=== PATIENT | male | born 1975 | race Caucasian/White ===

== ENCOUNTER 2016-06-11 13:05 | Emergency (ER) ==
[2016-06-11 13:14] VITALS: BP 242/160; TEMP 99.4; BMI 38.2
[2016-06-11] MEDS ORDERED: PROCARDIA XL PO STA (13:16)
[2016-06-11] MEDS ORDERED: CATAPRES PO STA (13:17)
[2016-06-11] MEDS ORDERED: ATIVAN PO STA (13:17)
[2016-06-11 13:37] LABS: BASOPHILS % (AUTO) 0.5 % (0.0-3.0); EOSINOPHILS % (AUTO) 0.6 % (0.0-7.0); HEMATOCRIT 49.3 % (42.0-52.0); HEMOGLOBIN 17.1 g/dl (14.0-18.0); IMMATURE GRANULOCYTE % (AUTO) 0.9 % (0.0-5.0); LYMPHOCYTES # (AUTO) 0.8 K/uL (0.60-3.4); LYMPHOCYTES % (AUTO) 11.8 (10.0-50.0); MEAN CORPUSCULAR HEMOGLOBIN 28.8 pg (27.0-31.0); MEAN CORPUSCULAR HGB CONC 34.7 (31.8-35.4); MEAN CORPUSCULAR VOLUME 83.1 fl (80.0-94.0); MONOCYTES # (AUTO) 0.5 K/uL (0.4-2.0); MONOCYTES % (AUTO) 7.9 (0-10); NEUTROPHILS % (AUTO) 78.3; PLATELET COUNT 255 10^3/uL (140-440); RED BLOOD COUNT 5.93 10^6/ul (4.70-6.10); WHITE BLOOD COUNT 6.34 K/ul (4.2-10.2)
[2016-06-11 14:18] LABS: ALANINE AMINOTRANSFERASE 36 U/L (12-78); ALBUMIN 3.5 g/dL (3.4-5.0); ALBUMIN/GLOBULIN RATIO 1.21; ALKALINE PHOSPHATASE 76 U/L (50-136); ANION GAP 13.4; ASPARTATE AMINO TRANSFERASE 18 U/L (15-37); BILIRUBIN,TOTAL 0.46 mg/dL (0.00-1.20); BLOOD UREA NITROGEN 11 mg/dL (7-18); BUN/CREATININE RATIO 10.37; CARBON DIOXIDE 23 mmol/L (21-32); CHLORIDE 108 mmol/L (98-107); CREATINE KINASE 146 U/L; CREATININE 1.06 mg/dL (0.60-1.10); GLUCOSE 101 mg/dL (70-100); POTASSIUM 3.4 mmol/L (3.5-5.1); SODIUM 141 mmol/L (136-145); TOTAL PROTEIN 6.4 g/dL (6.4-8.2)
[2016-06-11 14:21] LABS: CREATINE KINASE MB 0.6 ng/ml (0.0-3.6)
--- NOTE | 2016-06-11 15:52 | ED.PDOC ---
General ED Provider: Dr. CAMPBELL HOBBS-ER Chief Complaint: Behavioral Complaint Stated Complaint: my left me--concepcion been off my bp meds---i am not sleeping Time Seen by Physician: 13:10 Mode of Arrival: Walk-In Information Source: Patient Exam Limitations: No limitations Primary Care Provider: DARION BERKOWITZ Nursing and Triage Documentation Reviewed and Agree: Yes Psychological Complaint Exam - Psychiatric Complaint/Exam Patient Complains Of: Present: Other Onset/Duration: several days Symptoms Are: Still present Timing: Intermittent Episodes Lasting: Days Initial Severity: Mild Current Severity: Mild Character: Present: Depressed, Anxious Aggravating: Reports: Recent stress, Medication noncompliance (not taking bp meds) Associated Signs And Symptoms: Reports: Sleep disturbance, Appetite change. Denies: Hostile, Confused, Hallucinating, Paranoid behavior Related History: Reports: Recent stressors. Denies: Suicidal thoughts, Suicidal plan, Suicidal gestures, Homicidal thoughts, Homicidal plan, Homicidal gestures, Prior attempts, Drug ingestion Completed Suicide Risk Factors: Male, Patient In Custody Of Police: No Social Withdrawal Present: No Social Isolation Present: No Prior Suicide Attempt: No Injury From Prior Suicide Attempt: No Related Surgical History: Reports: None Patient Uncooperative For Exam: No Mood: Present: Depressed, Anxious. Absent: Angry, Guarded, Paranoid, Hallucinating, Manic, Agitated, Hearing voices Appearance: Present: Clean Thought Process: Present: Logical Insight: Present: Good Memory: Intact Judgement: Normal Danger To Others: No Patient Medically Stable For: Psych evaluation Differential Diagnoses: Anxiety, Depression Review of Systems - Review Of Systems Constitutional: Reports: No symptoms Eyes: Reports: No symptoms Ears, Nose, Mouth, Throat: Reports: No symptoms Respiratory: Reports: No symptoms Cardiac: Reports: No symptoms GI: Reports: No symptoms : Reports: No symptoms Musculoskeletal: Reports: No symptoms Skin: Reports: No symptoms Neurological: Reports: Anxiety Endocrine: Reports: No symptoms Hematologic/Lymphatic: Reports: No symptoms All Other Systems: Reviewed and Negative Past Medical History - Past Medical History Endocrine: Reports: Unknown Cardiovascular: Reports: Hypertension Respiratory: Reports: Unknown Hematological: Reports: Unknown Gastrointestinal: Reports: Unknown Genitourinary: Reports: Unknown Neuro/Psych: Reports: Unknown Musculoskeletal: Reports: Unknown Cancer: Reports: Unknown - Surgical History General Surgical History: Reports: Unknown - Family History Family History: Reports: Unknown - Social History Smoking Status: Current every day smoker, Heavy tobacco smoker Hx Substance Use: No Alcohol Screening: None Physical Exam - Physical Exam Appearance: Well-appearing, No pain distress, Well-nourished Eyes: EMETERIO, EOMI, Conjunctiva clear ENT: Ears normal, Nose normal, Oropharynx normal Neck: Supple Respiratory: Airway patent, Breath sounds clear, Breath sounds equal, Respirations nonlabored Cardiovascular: RRR, Pulses normal, No rub, No murmur GI/: Soft, Nontender, No masses, Bowel sounds normal, No Organomegaly Musculoskeletal: Normal strength, ROM intact, No edema, No calf tenderness Skin: Warm, Dry, Normal color Neurological: Sensation intact, Motor intact, Reflexes intact, Cranial nerves intact, Alert, Oriented Psychiatric: Affect appropriate, Mood appropriate, Anxious, Depressed Interpretation - EKG Interpretation Time of EKG #1: 15:52 Rate: Normal Rhythm: Sinus Ectopy: None [place]: NL ST Segment: Normal Interpretation: nsr Re-Evaluation - Re-Evaluation Time of Re-Evaluation: 15:55 Status: Improved (bp 160/100) Vital Signs Stable: Yes Pain Level: 0 Appearance: NAD Lungs: Clear Skin: Warm and Dry Neuro: Alert and Oriented X3 CV: RRR Critical Care Note - Critical Care Note Total Time (mins): 0 Course - Course Hematology/Chemistry: 06/11/16 13:30 06/11/16 13:30 Orders, Labs, Meds: Lab Review 06/11/16 13:30 WBC 6.34 RBC 5.93 Hgb 17.1 Hct 49.3 MCV 83.1 MCH 28.8 MCHC 34.7 RDW Coeff of [place] 12.5 Plt Count 255 Immature Gran % (Auto) 0.9 Neut % (Auto) 78.3 Lymph % (Auto) 11.8 Carter % (Auto) 7.9 Eos % (Auto) 0.6 Baso % (Auto) 0.5 Immature Gran # (Auto) 0.1 Neut # 5.0 Lymph # 0.8 Carter # 0.5 Eos # 0.0 Baso # 0.0 Sodium 141 Potassium 3.4 L Chloride 108 H Carbon Dioxide 23 Anion Gap 13.4 BUN 11 Creatinine 1.06 Estimated GFR (MDRD) 77.00 BUN/Creatinine Ratio 10.37 Glucose 101 H Calcium 9.0 Total Bilirubin 0.46 AST 18 ALT 36 Alkaline Phosphatase 76 Total Creatine Kinase 146 CK-MB (CK-2) 0.6 CK-MB (CK-2) % 0.74620 Troponin I < 0.0100 Total Protein 6.4 Albumin 3.5 Globulin 2.9 Albumin/Globulin Ratio 1.21 TSH 0.592 Orders Category Date Time Status EKG-(ED ONLY) Stat CARDIO 06/11/16 13:16 Completed Wh[employer] 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] .ONCE EMERGENCY 06/11/16 13:16 Active Consult Mental Health [ED MENTAL HEALTH CONSULT] .ONCE EMERGENCY 06/11/16 13: 19 Active CBC W/ AUTO DIFF Stat LAB 06/11/16 13:30 Completed COMPREHENSIVE METABOLIC PANEL Stat LAB 06/11/16 13:30 Completed CREATINE KINASE Stat LAB 06/11/16 13:30 Completed TROPONIN I Stat LAB 06/11/16 13:30 Completed TSH [THYROID STIMULATING HORMONE] Stat LAB 06/11/16 13:30 Completed Clonidine HCl [Catapres] MEDS 06/11/16 13:17 Discontinued 0.1 mg PO ONCE STA Lorazepam [Ativan] MEDS 06/11/16 13:17 Discontinued 1 mg PO ONCE STA Nifedipine [Procardia Xl] MEDS 06/11/16 13:16 Discontinued 30 mg PO ONCE STA Medications Discontinued Medications Generic Name Dose Route Start Last Admin Trade Name Freq PRN Reason Stop Dose Admin Clonidine 0.1 mg 06/11/16 13:17 06/11/16 13:29 Catapres PO 06/11/16 13:18 0.1 mg ONCE STA Administration Lorazepam 1 mg 06/11/16 13:17 06/11/16 13:29 Ativan PO 06/11/16 13:18 1 mg ONCE STA Administration Nifedipine 30 mg 06/11/16 13:16 06/11/16 13:29 Procardia Xl PO 06/11/16 13:17 30 mg ONCE STA Administration mental health here--they concur he is not suicidal Vital Signs: Temp Pulse Resp BP Pulse Ox 06/11/16 13:05 99.4 F 92 H 20 242/160 H 95 Departure - Departure Time of Disposition: 15:56 Disposition: HOME SELF-CARE Discharge Problem: Anxiety Instructions: Anxiety (ED) Condition: Good Pt referred to PMD for follow-up: Yes Additional Instructions: ativan 1mg q hs prn insomnia#7--keep appt with mental health and dr berkowitz this week--get restarted on bp meds today.. Allergies/Adverse Reactions: Allergies No Known Allergies Allergy (Verified 06/11/16 13:11) Home Medications: Ambulatory Orders Amlodipine Besylate mg PO 06/11/16 Lisinopril [Zestril] mg PO 06/11/16 Disposition Discussed With: Patient
== END 2016-06-11 16:04 | disposition home or self-care (01) ==
LOC: ED 13:05
DX: F41.9 Anxiety disorder, unspecified (principal); I10 Essential (primary) hypertension; Z91.14 Patient's other noncompliance with medication regimen; G47.00 Insomnia, unspecified; F17.210 Nicotine dependence, cigarettes, uncomplicated
CPT/HCPCS: 36415; 80053; 82550; 82553; 84443; 84484; 85025; 93005; 93010; 99283